=== PATIENT | female | born 1965 | race Caucasian/White ===

== ENCOUNTER 2018-04-24 21:00 | Emergency (ER) | payer OTHER ==
--- NOTE | 2018-04-24 21:08 | ED Physician Documentation ---
General Adult - HISTORIAN Historian: patient - HPI Stated Complaint: nausea, sob, arm/shoulder pain Chief Complaint: General Adult Onset: hours (9) Timing: still present Severity: moderate Further Comments: yes (Pt is a 52 yo female who became nauseated and had cold chills while at work; pt then developed R-sided chest discomfort and pain in her R arm. Pt felt sob. 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 Pt has hx HTN and C-sec x 3. No heart hx.) - ROS CONST: chills, other (malaise) EYES/ENT: none CVS/RESP: shortness of breath GI/: nausea MS/SKIN/LYMPH: none - PAST HX Past History: hypertension Surgeries/Procedures: (x3) Allergies/Adverse Reactions: Allergies Allergy/AdvReac Type Severity Reaction Status Date / Time Sulfa (Sulfonamide Allergy Intermediate Hives Verified 04/24/18 21:28 Antibiotics) Narcotic Pain Meds AdvReac Intermediate Nausea/Vomi Uncoded 04/24/18 21:28 ting Home Medications: Ambulatory Orders Medication Instructions Recorded Losartan Potassium [Cozaar] 100 mg PO DAILY 04/24/18 - SOCIAL HX Smoking History: quit greater than 1 year - FAMILY HX Family History: No - REVIEWED ASSESSMENTS Nursing Assessment Reviewed: Yes Vitals Reviewed: Yes Progress - Progress Progress: ASA 325 mg po CXR: 1. Cardiomegaly. 2. No active disease. NS 1 L IVF Zofran 4 mg IV Toradol 30 mg IV D-dimer, other labs wnl, Cardiac Enz not elevated, sx started > 12 hrs ago. improved, some mild nausea Zofran ODT 4 mg po 2 tabs --> home. - EKG/XRAY/CT EKG: NSR (HR=83; normal axis; normal FL interval; non-specific ST/T changes.) XRAY: chest General Adult Physical Exam - PHYSICAL EXAM GENERAL APPEARANCE: moderate distress EENT: eye inspection normal, pharynx normal NECK: normal inspection, supple RESPIRATORY: no resp distress, chest non-tender, breath sounds normal CVS: reg rate & rhythm, heart sounds normal ABDOMEN: soft, no organomegaly, normal bowel sounds BACK: normal inspection, no CVA tenderness SKIN: warm/dry, normal color EXTREMITIES: non-tender, normal range of motion, no evidence of injury, no edema NEURO: oriented X3, motor nml, sensation nml Discharge Clincal Impression: nausea, mild dehydration Shoulder pain Qualifiers: Chronicity: unspecified Laterality: bilateral Qualified Code(s): M25.511 - Pain in right shoulder; M25.512 - Pain in left shoulder; M25.512 - Pain in left shoulder Referrals: Primary Doctor,No [Primary Care Provider] - 2 Days Condition: Stable Disposition: 01 HOME, SELF-CARE Decision to Admit: NO Decision Time: 23:14
[2018-04-24 21:40] LABS: BASOPHILS % 0.4 (0.0-1.5); EOSINOPHILS % 2.3 % (0.0-6.8); MEAN CORPUSCULAR HEMOGLOBIN 28.2 pg (28.0-34.0); MEAN CORPUSCULAR VOLUME 85.4 fl (80.0-100.0); MONOCYTES % 4.7 % (0.0-11.0); NEUTROPHILS # 4.7 # k/uL (1.4-7.7); eGFR (Non-African) > 60
[2018-04-24] MEDS: 0.9 % SODIUM CHLORIDE 500 ML IV ONE ×2 (21:40→22:18)
[2018-04-24] MEDS: ONDANSETRON HCL/PF 4 MG/ 2ML VIAL IVP ONE (21:41)
[2018-04-24] MEDS: ASPIRIN 81 MG CHEW TAB PO ONE (21:42)
[2018-04-24] MEDS: KETOROLAC TROMETHAMINE 30 MG/1ML VIAL IVP ONE (22:59)
[2018-04-24 23:51] VITALS: BP 133/56
[2018-04-24] MEDS: ONDANSETRON HCL 4 MG TAB.RAPDIS ONE (23:55)
[2018-04-24] MEDS: ONDANSETRON HCL 4 MG TAB.RAPDIS PO ONE (23:56)
--- NOTE | 2018-04-25 05:50 | Diagnostic Imaging Report ---
SHAHID BEAVER [facility] [id number] [facility] [address] [address] Report Submission Date: Apr 24, 2018 9:58:48 PM CDT Patient Study Name: ASCENCION SIMMS Date: Apr 24, 2018 9:23:51 PM CDT Modality Type: DX Gender: F Description: CHEST : 69 Institution: [facility] Physician: SHAHID BEAVER Portable chest Clinical history: CHEST PAIN, SOA Findings: Examination the chest in single portable AP view demonstrates the lungs to be clear. Cardiac silhouette is enlarged. Monitor leads superimpose the chest. Bony thorax is intact. Impression: 1. Cardiomegaly. 2. No active disease. Electronically signed on Apr 24, 2018 9:58:48 PM CDT by: Jt CASILLAS
[2018-04-25 08:41] LABS: CANNABINOIDS NEGATIVE ng/mL (< 50); METHYLENEDIOXYMETHAMPHETAMINE NEGATIVE ng/mL (<500)
[2018-04-25 08:45] LABS: APPEARANCE,URINE CLEAR (CLEAR); COLOR,URINE YELLOW (YELLOW); OCCULT BLOOD,URINE NEGATIVE (NEGATIVE)
== END 2018-04-24 23:35 | disposition home or self-care (01) ==
LOC: ED 21:00
DX: M25.511 Pain in right shoulder (principal); M25.512 Pain in left shoulder; R11.0 Nausea; E86.0 Dehydration
CPT/HCPCS: 71045; 80053; 80377; 81002; 82550; 82553; 83880; 84484; 85025; 85379; 93005; 96360; 96361; 96374; 96375; 99285; A9270; J1885; J2405; J7060; G0481; S1016